=== PATIENT | female | born 1965 | race Caucasian/White ===

== ENCOUNTER 2024-05-19 11:56 | Emergency (ER) | payer BC | END 2024-05-19 14:03 | disposition left against medical advice (07) | LOC: ER 12:03 | DX: S09.90XA Unspecified injury of head, initial encounter (principal); S99.929A Unspecified injury of unspecified foot, initial encounter; Z53.21 Procedure and treatment not carried out due to patient leaving prior to being seen by health care provider; X58.XXXA Exposure to other specified factors, initial encounter; Y93.89 Activity, other specified; Y92.89 Other specified places as the place of occurrence of the external cause; Y99.8 Other external cause status ==